=== PATIENT | female | born 1965 | race Caucasian/White ===

== ENCOUNTER 2021-06-16 00:05 | Emergency (ER) | payer MEDICAID ==
[~2021-06-16] VITALS: Ht 177.8 cm; Wt 61.2 kg
[2021-06-16 00:05] VITALS: BP 113/62
--- NOTE | 2021-06-16 00:09 | NUR ---
PT OFFLOADED TO THE LOBBY IN STABLE CONDITION.
--- NOTE | 2021-06-16 01:04 | NUR ---
PT AMBULATED TO BED #9
[2021-06-16] MEDS ORDERED: AMOXIL/CLAVULANATE 875/125 MG 1 TAB PO ONE (01:15)
[2021-06-16] MEDS ORDERED: KETOROLAC 30 MG/ML VIAL IM ONE (01:15)
[2021-06-16] MEDS ORDERED: AMOX-1000 PO (01:18)
--- NOTE | 2021-06-16 01:29 | NUR ---
55 Y/O F BIBA. PATIENT PRESENTS TO ED WITH LESIONS TO ARMS AND LEGS. PT STATES THE SPIDERS BIT HER ALL OVER. DENIES N/V/D; SKIN IS PINK/WARM/DRY WITH MULTIPLE LESIONS TO HER LEFT SHOULDER AND LEFT THIGH; AAOX4 WITH EVEN AND STEADY GAIT; PT DENIES ANY FEVER, CP, SOB, OR COUGH AT THIS TIME; PATIENT STATES PAIN OF 10/10 AT THIS TIME; VSS; PATIENT POSITIONED FOR COMFORT; HOB ELEVATED; BEDRAILS UP X2; BED DOWN. ER MD MADE AWARE OF PT STATUS. HX: HEROIN USE 24 HOURS AG [facility]: [facility]
--- NOTE | 2021-06-16 01:33 | NUR ---
PT WAS GIVEN FOOD
--- NOTE | 2021-06-16 01:38 | NUR ---
PT VERBALIZED UNDERSTANDING OF DISCHARGE PAPERWORK. PT REFUSES TO SIGN STATING HER ARM "HURTS TOO BAD."
[2021-06-16 01:41] VITALS: BP 113/62
--- NOTE | 2021-06-16 01:43 | NUR ---
Patient discharged with v/s stable. Written and verbal after care instructions given and explained. Patient verbalized understanding. Ambulatory with steady gait. All questions addressed prior to discharge. Advised to follow up with PMD. PT IS A/OX4, STEADY GAIT, AND UNLABORED BREATHING
== END 2021-06-16 01:43 | disposition home or self-care (01) ==
LOC: MED 00:05
DX: L03.113 Cellulitis of right upper limb (principal); L03.116 Cellulitis of left lower limb; F11.10 Opioid abuse, uncomplicated; Z79.899 Other long term (current) drug therapy
CPT/HCPCS: 96372; 99283; J1885

== ENCOUNTER 2022-06-14 07:57 | Emergency (ER) | payer MEDICAID ==
[~2022-06-14] VITALS: Ht 167.6 cm; Wt 77.1 kg
[~2022-06-14 07:57] MED LIST: AMOX-1000 PO
[2022-06-14 08:09] VITALS: BP 141/70
--- NOTE | 2022-06-14 08:22 | NUR ---
TO ER BED 3
--- NOTE | 2022-06-14 08:23 | NUR ---
PT RECEIVED, CARE ASSUMED. PT DENIES ANY TREATMENT. PT STATES ' IM OK, I WANT TO LEAVE"
[2022-06-14 09:01] VITALS: BP 137/78
--- NOTE | 2022-06-14 09:02 | NUR ---
Patient discharged with v/s stable. Written and verbal after care instructions given and explained. Patient verbalized understanding. Ambulatory with steady gait. All questions addressed prior to discharge. Advised to follow up with PMD.
== END 2022-06-14 09:01 | disposition home or self-care (01) ==
LOC: MED 07:57
DX: R53.1 Weakness (principal); F15.90 Other stimulant use, unspecified, uncomplicated
CPT/HCPCS: 99283